=== PATIENT | female | born 1965 | race African-American/Black ===

== ENCOUNTER 2018-02-05 20:05 | Emergency (ER) | payer OTHER ==
[~2018-02-05] VITALS: Ht 152.4 cm; Wt 86.6 kg
[~2018-02-05 20:05] MED LIST: BISOPROLOL FUMAR5 MG PO; NORCO 5-325 TA1 EACH PO; ZANTAC 150MG T150 M1 PO; ZOFRAN ODT4 MG PO
[2018-02-05 21:10] VITALS: BP 134/80
== END 2018-02-05 20:55 | disposition home or self-care (01) ==
LOC: ER 20:05
DX: R20.2 Paresthesia of skin (principal); R25.2 Cramp and spasm; I10 Essential (primary) hypertension; Z88.1 Allergy status to other antibiotic agents

== ENCOUNTER 2019-04-13 06:06 | Emergency (ER) | payer OTHER ==
[~2019-04-13] VITALS: Ht 167.6 cm; Wt 91.6 kg
[2019-04-13 06:46] LABS: ABSOLUTE NEUTROPHILS 3.8 thou/uL (1.4-8.2); BASOPHILS 0.8 % (0.0-2.0); EOSINOPHILS 0.9 % (0.0-3.0); HEMATOCRIT 41.1 % (37.0-47.0); HEMOGLOBIN 13.8 gm/dL (12.0-15.0); LYMPHOCYTES 28.6 % (24.0-44.0); MCH 28.2 pg (26.0-34.0); MCHC 33.5 g/dL (28.0-37.0); MCV 84.2 fL (80.0-100.0); MONOCYTES 7.6 % (1.0-8.0); PLATELET COUNT 309 thou/uL (150-400); POLYS 62.1 % (36.0-66.0); RBC 4.88 mil/uL (4.20-5.00); RDW 14.1 % (10.5-14.5); WBC 6.1 thou/uL (4.0-11.0)
[2019-04-13 06:56] LABS: CALCIUM 9.3 mg/dL (8.5-10.1); CREATININE 0.8 mg/dL (0.6-1.0); POTASSIUM 3.3 mmol/L (3.5-5.1)
[2019-04-13 07:02] LABS: ALBUMIN 3.9 g/dL (3.4-5.0); TOTAL BILIRUBIN 0.7 mg/dL (<0.1-1.0); TOTAL PROTEIN 8.8 g/dL (6.4-8.2)
[2019-04-13 08:06] LABS: URINE BILIRUBIN NEGATIVE (Negative); URINE BLOOD 1+ (Negative); URINE CLARITY CLEAR; URINE COLOR YELLOW; URINE GLUCOSE-RANDOM* NEGATIVE (Negative); URINE KETONES NEGATIVE (Negative); URINE LEUKOCYTES-REFLEX NEGATIVE (Negative); URINE NITRITE-REFLEX NEGATIVE (Negative); URINE PROTEIN (DIPSTICK) 2+ (Negative); URINE SPECIFIC GRAVITY 1.015 (1.005-1.035); URINE UROBILINOGEN 0.2 E.U./dl (0.2-1.0)
[2019-04-13 08:12] LABS: SQUAMOUS None Seen /LPF (0-3); URINE WBC-REFLEX None Seen /HPF (0-5)
[2019-04-13 08:13] LABS: BACTERIA-REFLEX None Seen /HPF (None Seen); CRYSTALS None Seen /LPF (None Seen); URINE RBC 0-2 Rare /HPF (0-2)
[2019-04-13] MEDS ORDERED: NORCO 5-325 TA1 EAC1 PO (09:24)
[2019-04-13] MEDS ORDERED: MIRALAX17 G1 PO ×2 (09:24→16:29)
[2019-04-13 09:52] VITALS: BP 153/97
[2019-04-13] MEDS ORDERED: LORCET 5-325 M1 EACH PO (16:28)
== END 2019-04-13 09:52 | disposition home or self-care (01) ==
LOC: ER 06:06
PROVIDERS: Emergency Medicine
DX: K80.20 Calculus of gallbladder without cholecystitis without obstruction (principal); R11.2 Nausea with vomiting, unspecified; I10 Essential (primary) hypertension; Z98.890 Other specified postprocedural states; Z88.1 Allergy status to other antibiotic agents

== ENCOUNTER 2019-04-16 07:05 | Inpatient (IN) | payer OTHER ==
[~2019-04-16] VITALS: Ht 167.6 cm; Wt 92.1 kg
[~2019-04-16 07:05] MED LIST changes: +LORCET 5-325 M1 EACH PO; +MIRALAX17 G1 PO; +NORCO 5-325 TA1 EAC1 PO
[2019-04-16 08:32] VITALS: BP 129/77
[2019-04-16] MEDS ORDERED: OXYCODONE HCL 55 MG PO (09:52)
[2019-04-16] MEDS ORDERED: IBUPROFEN 200200 M1 PO (09:52)
[2019-04-16] MEDS ORDERED: ACETAMINOPHEN325 M1 PO (09:53)
[2019-04-16] MEDS ORDERED: MIRALAX17 GM PO (09:53)
[2019-04-16] MEDS ORDERED: COLACE 100 MG100 MG PO (09:53)
[2019-04-16 13:15] VITALS: BP 106/72
[2019-04-16 14:58] VITALS: BP 124/96
[2019-04-16 15:45] VITALS: BP 141/78
[2019-04-16 18:58] VITALS: BP 114/71
--- NOTE | 2019-04-16 20:16 | NUR ---
ADMIITED FROM PACU. S/P ALYCE HAMLIN WITH . LAP SITES INTACT. IVF STARTED. PAIN MANAGED PER MD ORDER. STARTED ON CLEAR LIQUIDS. PT WAS SEEN BY GI RETENTION MANAGER AND PHYSICIAN. NO S/S ACUTE DISTRESS NOTED OR REPORTED AT THIS TIME. CARE TRASFERRED TO PM RN AT THIS TIME.
[2019-04-17 03:25] VITALS: BP 101/57
--- NOTE | 2019-04-17 03:54 | NUR ---
ASSUMED PT CARE AT 1900. PT REPORTS PAIN IN THROAT. PAIN IN ABDOMEN IS EXCERBATED WHEN PT COUGHS. COUGHING FREQUENTLY. THROAT SPRAY USED, AND GREEK ICE GIVEN TO HELP SOOTHE. DIFFICULTY SWALLOWING PAIN MEDS SO PT JUST REFUSED THEM. FELL ASLEEP SHORTLY AFTER AND RESTED COMFORTABLY MOST THE NIGHT. LAP SITES INTACT, 1 HAD A SCANT AMOUNT OF BLOOD DRAINAGE, APPLIED BANDAGE AND JUAN CONTINUE TO MONITOR. UP TO BATHROOM, STEADY ON FEET.
[2019-04-17 06:48] LABS: HEMATOCRIT 35.4 % (37.0-47.0); HEMOGLOBIN 11.7 gm/dL (12.0-15.0); MCH 28.2 pg (26.0-34.0); MCV 85.5 fL (80.0-100.0); RBC 4.14 mil/uL (4.20-5.00); RDW 14.3 % (10.5-14.5); WBC 9.3 thou/uL (4.0-11.0)
[2019-04-17 07:06] LABS: CALCIUM 8.8 mg/dL (8.5-10.1); CREATININE 1.1 mg/dL (0.6-1.0); POTASSIUM 3.4 mmol/L (3.5-5.1); TOTAL BILIRUBIN 0.6 mg/dL (<0.1-1.0); TOTAL PROTEIN 7.4 g/dL (6.4-8.2)
[2019-04-17 08:00] VITALS: BP 99/65
[2019-04-17 08:27] VITALS: BP 92/56
--- NOTE | 2019-04-17 10:46 | NUR ---
PT ADMITTED RELATED TO LAP CHOLECYSTECTOMY. CM REVIEWED CHART AND SPOKE WITH CARE TEAM. CM MET WITH PT AT BEDSIDE THIS DAY. PT IS A&O X4. CM ROLE INTRODCUED. PT INDICATED SHE LIVES IN A HOUSE WITH HER SPOUSE AND 2 KIDS. SHE INDICATED THERE IS 1 STEP TO ENTER THE HOUSE THROUGH THE GARAGE AND 2 SETS OF 10 STEPS INSIDE. 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 PT INDICATED NO DME AND NO HH HX. PT INDICATED SHE PLANS TO RETURN HOME ONCE MEDICALLY STABLE. CM TO FOLLOW INDICATED SHOULD ANY DC NEEDS ARISE.
--- NOTE | 2019-04-17 17:06 | PATH ---
[facility] [address] [place] [address] PATHOLOGY RPT PROCEDURE Name: MIAH SON Room #: 441-P [facility] IN M.R.#: [id number] Admission: 04/16/19 Date of : 61 Discharge: Report #: [id number] Path Case #: [id number] L[facility] Accession Number: [id number] . 01 Material submitted: . gallbladder - GALLBLADDER . 01 Clinical history: . Chronic cholecystitis . 02 Diagnosis: Gallbladder, cholecystectomy: - Moderate acute and chronic cholecystitis associated with surface ulceration. - Cholelithiasis. (IUV:shape carver; 04/17/2019) MBR 04/17/2019 1312 Local . 02 Electronically signed: . Selam Allen MD, Pathologist NPI- [id number] . 01 Gross description: . The specimen is received in formalin labeled "Miah Son gallbladder" and consists of a punctured pink-sampson hemorrhagic gallbladder measuring 8.8 x 3.2 x 2.8 cm. The margin is inked black. Opening reveals a lumen filled with yellow orange sludge and fragmented to multifaceted yellow orange calculi measuring 3.5 x 3.0 cm. The mucosa is pink-sampson, eroded, and varying from smooth to roughened with an average wall thickness of 0.2 cm. The gallbladder is entirely encased with yellow adipose tissue measuring up to 0.8 cm. No masses are identified. Welcome Hostess sections are submitted in A1. (SDY; 04/16/2019) SYU/SYU 04/16/2019 1652 Local . 02 Pathologist provided ICD-10: K80.12 . 02 CPT . 170635 Specimen Comment: A courtesy copy of this report has been sent to [phone] Specimen Comment: [id number] Specimen Comment: Report sent to / DR ROSE Performed at: [address] [id number] [place] [address] PATHOLOGY RPT PROCEDURE Name: MIAH SON Room #: 441-P [facility] IN M.R.#: [id number] Admission: 04/16/19 Date of : 61 Discharge: Report #: [id number] Path Case #: [id number] MD Rod Pichardo MD Phone: [phone] Performed at: [address] [id number] MD Selam Allen MD Phone: [phone]
[2019-04-17 18:10] VITALS: BP 131/76
[2019-04-17 19:45] VITALS: BP 133/71
--- NOTE | 2019-04-17 20:40 | NUR ---
Received awake on bed. On nothing per orem- pt informed and aware. On O2 at 2lpm via nasal cannula- as per manager ui nurse pt has been having coarse lung sounds, they recently contacted Dr James to inform him and was able to obtain orders such as: CMP, CBC, Chest xray and to d/c IVF and to maintain O2. Vital signs stable, with slightly low BP but pt's baseline. Assisted in ADLs. Up ad fina. A+Ox4. With Lap sites, surgical glue noted, C/D/I, no signs of infection noted. Complained of pain, due PRN pain meds given as prescribed. For ERCP today, consent signed, a/w schedule. With SL at R hand- intact and flushing well. Pt complained and noted of coughing- Dr Mendoza informed and he ordered scheduled nebulization for pt. Followed up re: schedule of ERCP-pt updated. Pt's requested to talk to a physician- Dr Mendoza informed and pt's number given to him. Report given to GI staff NOELLE. NOELLE called back and said that pt's O2 sats desaturated to 70's upon, GI doctor talked to Dr Mendoza and said that ERCP to be rescheduled. Hospitalist, Pulmo and ID consult placed- US called in consults, physicians has seen the patient. IV antibiotics, KCL tab and Enoxaparin given as prescribed. Lab draws taken as well. Pt on regular diet after coming back from GI lab- tolerated well, no nausea, no vomiting and no abdominal pain noted. Pt seen by Dr Love, one-time furosemide dose 20mg given as prescribed, advised pt to be transferred to CCU- House sup informed, available bed rm 200. Electrolyte protocol ordered as per Dr Love's request. EKG and Troponin done. Pt informed re: transfer and she contacted her relatives. Report given to staff Loyad, pt transported by GEOCHEMISTRY TEACHER with her personal belongings. Upon checking, pt's chart left at central supply aide- asked manager ui GEOCHEMISTRY TEACHER to bring chart to CCU including pharmacy supplied antibiotics.
--- NOTE | 2019-04-18 01:38 | NUR ---
ASSESSMENTS CHARTED, MEDS GIVEN CHARTED. PATIENT RECEIVING IV ANTIBIOTICS, ON 3 LITERS NASAL CANNULA DURING SHIFT. UP AT MONICA TO BATHROOM, RECEIVED LASIX THERAPY TODAY. LAP YAKELIN SITES HAVE STICHES OR SURGICAL GLUE. ERCP WAS POSPONED DUE TO RESPIRATORY ISSUES. PT ON ELECTROLYTE PROTOCOL. C/O PAIN 4/10 DURING SHIFT AT LAP SITES. RECEIVING SCHEDULED TYLENOL.
[2019-04-18 04:45] VITALS: BP 128/74
[2019-04-18 05:40] LABS: HEMATOCRIT 35.7 % (37.0-47.0); HEMOGLOBIN 11.7 gm/dL (12.0-15.0); MCH 28.3 pg (26.0-34.0); MCHC 32.8 g/dL (28.0-37.0); MCV 86.4 fL (80.0-100.0); RBC 4.13 mil/uL (4.20-5.00); RDW 14.5 % (10.5-14.5); WBC 8.1 thou/uL (4.0-11.0)
[2019-04-18 05:54] LABS: ALBUMIN 3.1 g/dL (3.4-5.0); CREATININE 0.8 mg/dL (0.6-1.0); DIRECT BILIRUBIN 0.2 mg/dL (<0.1-0.2); POTASSIUM 3.4 mmol/L (3.5-5.1); TOTAL BILIRUBIN 0.6 mg/dL (<0.1-1.0)
[2019-04-18 07:08] VITALS: BP 122/74
--- NOTE | 2019-04-18 07:48 | HC ---
[facility] [place] [address] [place] [address] CONSULTATION Name: SEEMA SON Room #: 200-I ADM IN M.R.#: [id number] Admission: 04/16/19 Attend Phys: Lino Mendoza MD Discharge: Date of : 61 Report #: [id number] THIS REPORT FOR: //name// CC: Sam Mendoza ATTENDING: Dr. Mendoza. REASON FOR CONSULTATION: Hypoxia and medical management. HISTORY OF PRESENT ILLNESS: The patient is a 53-year-old female who recently underwent cholecystectomy and developed some postoperative hypoxia. Dr. Mendoza called me and asked for a medical consultation to help assist in her postoperative care. She was experiencing abdominal pain, was diagnosed with cholecystitis. She underwent a laparoscopic cholecystectomy yesterday. Cholangiogram postoperatively revealed a possible small ductal calculus in the distal common bile duct and there was concern for choledocholithiasis. The GI service was consulted and they planned ERCP today; however, in the assessment area she was slightly hypoxic and was complaining of a congested cough. The procedure was canceled at this time. An x-ray showed some bilateral alveolar infiltrates. She is denying any respiratory distress, but just feels a productive cough with a deep breath. She has a little bit of pain or discomfort on the right chest wall with a deep breath as well. PAST MEDICAL HISTORY: Hypertension. PAST SURGICAL HISTORY: As above. FAMILY HISTORY: Noncontributory. SOCIAL HISTORY: Denies chronic alcohol or tobacco use. ALLERGIES: AZITHROMYCIN. MEDICATIONS: Advil, oxycodone, Tylenol, Colace, MiraLax, bisoprolol. REVIEW OF SYSTEMS: She denies headache, nausea, vomiting, myalgias, arthralgias, syncope or fall. OBJECTIVE: VITAL SIGNS: Temperature 36.7, pulse 55, respirations 17, blood pressure 99/65, O2 sat 96% on 2 liters. GENERAL: She is awake and alert, in no distress. HEAD AND NECK: Unremarkable. LUNGS: She has some inspiratory crackles in the right base. HEART: Regular, no murmur. ABDOMEN: Obese, soft, normoactive bowel sounds. [facility] [address] [place] [address] CONSULTATION Name: SEEMA SON Room #: 200-I [facility] IN [facility].#: [id number] Admission: 04/16/19 Attend Phys: Lino Mendoza MD Discharge: Date of : 61 Report #: [id number] EXTREMITIES: No cyanosis, clubbing or edema. NEUROLOGIC: Cranial nerves intact. Speech is fluent. Motor strength 5/5 throughout. LABORATORY DATA: White count is 9.3, hemoglobin 11. Creatinine 1.1, potassium 3.4, albumin 3. Chest x-ray reveals diffuse bilateral alveolar infiltrates, worse on the right compared to the left. No pleural effusion. They remarked that the vascularity is within normal limits. ASSESSMENT: 1. Pneumonia. 2. Cholelithiasis, status post laparoscopic cholecystectomy. 3. Hypertension. 4. Mild protein-calorie malnutrition. PLAN: Agree with the antibiotic assessment at this point, I have added some respiratory treatments. We will follow her hospital stay with you. I spoke to Dr. Mendoza regarding her situation. <ELECTRONICALLY SIGNED> By: Giovani Beach MD 04/18/19 0748 1419 1927 Giovani Beach MD /nt
[2019-04-18 11:06] VITALS: BP 133/68
--- NOTE | 2019-04-18 15:14 | NUR ---
ASSUMED CARE AT SHIFT CHANGE, ALERT AND ORIENTED X4. PAIN ONLY WHEN COUGHNIG, AND SCHEDULLED TYLENOL GIVEN. PANCUTRE SITES ARE INTACT. UP WALKING THE HALLWAYS. ABD SOFT, TENDER, AND PASSING GAS. ON RA AND DENIES ANY CP OR SOB. AND WILL CONTINUE WITH POC.
[2019-04-18 15:17] VITALS: BP 122/69
[2019-04-18 19:49] VITALS: BP 149/92
[2019-04-19 04:00] VITALS: BP 131/82
[2019-04-19 04:13] LABS: CREATININE 0.7 mg/dL (0.6-1.0); POTASSIUM 3.2 mmol/L (3.5-5.1)
--- NOTE | 2019-04-19 05:58 | NUR ---
A/O X 4.UP INDEPENDENTLY.VANCO TROUGH 10.DOSE WAS CHANGED.MONITOR SHOWS SR.4 LAP SITES INTACT.POC CONTINUED.
[2019-04-19 08:41] VITALS: BP 148/84
[2019-04-19 12:35] VITALS: BP 145/101
--- NOTE | 2019-04-19 12:55 | EKG ---
[address] [address] ELECTROCARDIOGRAM REPORT Name: SEEMA SON Room #: 200-I ADM IN M.R.#: [id number] Admission: 04/16/19 Attend Phys: Lino Mendoza MD Discharge: Date of : 61 Report #: [id number] THIS REPORT FOR: //name// [facility] Test Date: 2019-04-16 Test Time: 07:58:25 Pat Name: SEEMA SON Department: Room: 200 Gender: F Jewel Diameter Gauger: nisha : 1965 Requested By: Lino Mendoza Order Number: [id number] MD: Niranjan Allen Measurements Intervals [place] Rate: 51 P: 6 WV: 172 QRS: 6 QRSD: 100 T: 61 QT: 447 QTc: 412 Interpretive Statements Sinus rhythm Compared to ECG 03/16/2013 00:31:22 Sinus bradycardia no longer present Electronically Signed On 04-19-2019 12:54:37 INFORMATION SERVICES VICE PRESIDENT by Niranjan Allen [email or web address] <ELECTRONICALLY SIGNED> By: Niranjan Allen MD 04/19/19 1254 0758 0758 Niranjan Allen MD /RONDA
--- NOTE | 2019-04-19 14:38 | 2DMMODE ---
[facility] [address] [place] [address] 2 D/M-MODE ECHOCARDIOGRAM Name: ADELAIDASEEMA Room #: 200-I ADM IN M.R.#: [id number] Admission: 04/16/19 Attend Phys: Lino Mendoza, Discharge: Date of : 61 Report #: [id number] THIS REPORT FOR: //name// APPROVED REPORT Study performed: 04/19/2019 12:56:58 EXAM: Comprehensive 2D, Doppler, and color-flow Echocardiogram Patient Location: Echo lab Room #: 200 Status: routine BSA: 1.99 HR: 70 bpm BP: 148/84 mmHg Rhythm: NSR Other Information Study Quality: Good Indications Congestive Heart Failure Hypertension/HDD 2D Dimensions RVDd: 34.77 mm IVSd: 10.34 (7-11mm) LVOT Diam: 20.93 (18-24mm) LVDd: 49.28 mm PWd: 9.80 (7-11mm) Ascending Ao: 27.99 (22-36mm) LVDs: 31.58 (25-40mm) Aortic Root: 29.18 mm IVC: 14.00 mm Volumes Left Atrial Volume (Systole) Single Plane 4CH: 75.68 mL Single Plane 2CH: 41.69 mL LA ESV Index: 33.00 mL/m2 Aortic Valve AoV Peak Blaise.: 1.93 m/s AO Peak Gr.: 14.97 mmHg LVOT Max P.99 mmHg LVOT Max V: 1.12 m/s RICKI Vmax: 1.99 cm2 Mitral Valve E/A Ratio: 0.7 MV Decel. Time: 252.06 ms [facility] [address] [place] [address] 2 D/M-MODE ECHOCARDIOGRAM Name: SEEMA SON Room #: 200-I [facility]#: [id number] Admission: 04/16/19 Attend Phys: Lino Mendoza, Discharge: Date of : 61 Report #: [id number] MV E Max Blaise.: 0.65 m/s MV A Blaise.: 0.93 m/s MV PHT: 73.10 ms IVRT: 110.73 ms Pulmonary Valve PV Peak Blaise.: 1.12 m/s PV Peak Gr.: 4.99 mmHg Pulmonary Vein P Vein S: 0.62 m/s P Vein A: 0.28 m/s P Vein D: 0.36 m/s P Vein A Dur.: 106.1 msec P Vein S/D Ratio: 1.72 Left Ventricle The left ventricle is normal size. There is normal LV segmental wall motion. There is normal left ventricular wall thickness. Left ventricular systolic function is normal. The left ventricular ejection fraction is within the normal range. LVEF is 60-65%. Grade I - abnormal relaxation pattern. Right Ventricle The right ventricle is normal size. The right ventricular systolic function is normal. Atria The left atrium size is normal. The right atrium size is normal. Aortic Valve The aortic valve is normal in structure. No aortic regurgitation is present. There is no aortic valvular stenosis. Mitral Valve The mitral valve is normal in structure. There is no mitral valve regurgitation noted. No evidence of mitral valve stenosis. Tricuspid Valve The tricuspid valve is normal in structure. There is no tricuspid valve regurgitation noted. Pulmonic Valve The pulmonary valve is normal in structure. There is no pulmonic valvular regurgitation. Great Vessels The aortic root is normal in size. IVC is normal in size and [facility] [address] [place] [address] 2 D/M-MODE ECHOCARDIOGRAM Name: SEEMA SON Room #: 200-I ADM IN .R.#: [id number] Admission: 04/16/19 Attend Phys: Lino Mendoza, Discharge: Date of : 61 Report #: [id number] collapses >50% with inspiration. Pericardium There is no pericardial effusion. <Conclusion> The left ventricle is normal size. LVEF is 60-65%. The aortic valve is normal in structure. The mitral valve is normal in structure. The tricuspid valve is normal in structure. The pulmonary valve is normal in structure. There is no pericardial effusion. <ELECTRONICALLY SIGNED> By: Juvencio Lundberg MD 04/19/19 4065 1438 143 Juvencio Lundberg MD /INF
[2019-04-19 16:12] VITALS: BP 146/93
--- NOTE | 2019-04-19 18:24 | NUR ---
ASSUMED CARE AT SHIFT CHANGE, ALERT AND ORIENTED X4. SR ON THE MONITOR. ASSESMENT DOCUMENTED. ABD SOFT, PATIENT HAD BM TODAY AND WILL CONTINUE WITH POC.
[2019-04-19 20:58] VITALS: BP 150/89
[2019-04-20 00:30] VITALS: BP 157/84
--- NOTE | 2019-04-20 04:30 | NUR ---
PT RESTING QUIETLY IN ROOM THRU THE NOC, PAIN CONTROLLED WITH SCHEDULED TYLENOL, PT UP ADLIB IN ROOM VOIDING IN HAT IN BR FOR STRICT I&O, BP CONTINUES TO CLIMB TO 150'S SYSTOLIC RESTARTED HOME BETABLOCKER, INCISIONS REMAIN CDI, WILL CON'T TO MONITOR PER PPOC.
[2019-04-20 05:03] VITALS: BP 131/63
[2019-04-20 05:42] LABS: ALBUMIN 2.9 g/dL (3.4-5.0); CALCIUM 9.4 mg/dL (8.5-10.1); CREATININE 0.7 mg/dL (0.6-1.0); POTASSIUM 3.5 mmol/L (3.5-5.1); TOTAL BILIRUBIN 0.2 mg/dL (<0.1-1.0); TOTAL PROTEIN 7.1 g/dL (6.4-8.2)
[2019-04-20 08:00] VITALS: BP 187/113
[2019-04-20 11:00] VITALS: BP 142/82
[2019-04-20 12:07] VITALS: BP 187/113
--- NOTE | 2019-04-20 12:37 | NUR ---
PT CARE ASSUMED APPROX 0700. ASSESSMENT CHARTED. PT DENIES PAIN AND SOA. BP ELEVATED THIS AM BUT WNL AT THIS TIME AFTER INTERVENTION. VS OTHERWISE STABLE. PT UP WITH STEADY GAIT AND DENIES QUESTIONS OR CONCERNS REGARDING POST HOSPITAL CARES OR F/U. IV OUT, TELE BOX OFF. PT TO BE ESCORTED OUT TIMELY.
--- NOTE | 2019-04-20 14:54 | EKG ---
[address] [address] ELECTROCARDIOGRAM REPORT Name: SONSEEMA Room #: 200-I [facility] IN M.R.#: [id number] Admission: 04/16/19 Attend Phys: Lino Mendoza MD Discharge: 04/20/19 Date of : 61 Report #: [id number] THIS REPORT FOR: //name// [facility] Test Date: 2019-04-17 Test Time: 15:44:27 Pat Name: SEEMA SON Department: Room: 200 Gender: F Scientist Engineer: Nabor EDWARDS : 1965 Requested By: Pavel Love Order Number: [id number] MD: Niranjan Allen Measurements Intervals [place] Rate: 61 P: 57 WV: 172 QRS: 13 QRSD: 97 T: 59 QT: 414 QTc: 417 Interpretive Statements Sinus rhythm Compared to ECG 03/16/2013 00:31:22 Sinus bradycardia no longer present Electronically Signed On 04-20-2019 14:54:20 PRINTED CIRCUIT BOARDS INSPECTOR by Niranjan Allen [email or web address] <ELECTRONICALLY SIGNED> By: Niranjan Allen MD 04/20/19 1454 1544 1544 Niranjan Allen MD /RONDA
== END 2019-04-20 13:26 | disposition home or self-care (01) | DRG 417 ==
LOC: OR 07:05 → TBA 07:05 → 4S 13:40 → 2N 13:41 → OR 13:41 → 2N 04-17 18:11 → ENTRNSPT 04-20 13:02 → EDTRNSPTSTS 04-20 13:03 → 2N 04-20 13:26
PROVIDERS: Internal Medicine Geriatric Medicine; Internal Medicine Pulmonary Disease; Nurse Practitioner; ADMIT Surgery
PROC: 0FT44ZZ Resection of Gallbladder, Percutaneous Endoscopic Approach (ICD-10-PCS; principal; 2019-04-16)
PROC: BF121ZZ Fluoroscopy of Gallbladder using Low Osmolar Contrast (ICD-10-PCS; principal; 2019-04-16)
DX: K80.10 Calculus of gallbladder with chronic cholecystitis without obstruction (principal); J18.9 Pneumonia, unspecified organism; J96.01 Acute respiratory failure with hypoxia; E44.1 Mild protein-calorie malnutrition; I10 Essential (primary) hypertension; G89.29 Other chronic pain; M54.9 Dorsalgia, unspecified; Z80.0 Family history of malignant neoplasm of digestive organs; Z88.1 Allergy status to other antibiotic agents; Z68.32 Body mass index [BMI] 32.0-32.9, adult; Z79.899 Other long term (current) drug therapy
CPT/HCPCS: 10081; 10195; 50010; 50101; 50249; 50411; 50555; 50558; 51489; 52265; 52266; 53307; 53310; 53312; 54022; 54118; 55245; 56462; 56525; 56526; 56674; 56719; 62110; 62900; 70005

== ENCOUNTER → 2019-04-23 | Outpatient (CLI) | payer OTHER ==
[~2019-04-23] MED LIST changes: +ACETAMINOPHEN325 M1 PO; +COLACE 100 MG100 MG PO; +IBUPROFEN 200200 M1 PO; +MIRALAX17 GM PO; +OXYCODONE HCL 55 MG PO
--- NOTE | 2019-04-24 14:05 | P ---
[facility] [address] PROCEDURE REPORT Name: SEEMA SON Room #: [facility]#: [id number] Admission: 04/23/19 Attend Phys: Lionel Rosales MD Discharge: Date of : 61 Report #: [id number] THIS REPORT FOR: //name// CC: RAQUEL Rosales OUTPATIENT ERCP REPORT BRIEF HISTORY: The patient is a 53-year-old woman who underwent laparoscopic cholecystectomy last week and was found to have evidence of a common bile duct stone. She was discharged several days ago, returns today for ERCP. PREOPERATIVE DIAGNOSIS: Choledocholithiasis. POSTOPERATIVE DIAGNOSIS: Choledocholithiasis. MEDICATIONS: Intubation and general anesthesia. SPECIMEN: None. ESTIMATED BLOOD LOSS: None. PROCEDURE: ERCP with inability to cannulate the common bile duct. FINDINGS: Prior to intubation and general anesthesia, the procedure of ERCP was discussed with the patient as well as potential risks and its complications including incomplete procedure, pancreatitis, bleeding, as well as perforation. She indicates she understands and desires to proceed. DESCRIPTION OF PROCEDURE: After induction of general anesthesia, the patient was placed in the prone position, the Olympus side-viewing endoscope was inserted in cervical esophagus and advanced through the stomach, across the pylorus and duodenum. As we entered the duodenum, the papilla could be seen. It was a very large papilla. It had normal shape, but was quite large and bulging into the lumen. The orifice was seen and clear yellow bile was intermittently flowing from the papilla. No mass lesions or ulcers were seen. The papilla was quite large and oriented in a downward fashion. This was more accentuated than usual. This made visualization of the papilla much more difficult. Attempts were made to go under the papilla and obtain a different angle, but each time we did so, the scope slid further down the duodenum. We were able to cannulate and insert a guidewire. Unfortunately, we cannulated the pancreatic duct. This was confirmed with a small injection of contrast media. We made multiple attempts with 2 different sphincterotomes, including the 0.25 and the 0.21 without success. We could not cannulate the common bile duct. After multiple attempts as well as change in patient position were undertaken, it was felt best to terminate the procedure. The scope was withdrawn. The [address] [address] PROCEDURE REPORT Name: LATOYA SONAIDA Tomlin Room #: REG [facility] [place]#: [id number] Admission: 04/23/19 Attend Phys: Lionel Rosales MD Discharge: Date of : 61 Report #: [id number] patient tolerated the procedure well. CONDITION OF THE PATIENT UPON DISCHARGE: Following procedure, the patient was taken to postanesthesia care unit. INSTRUCTIONS TO THE PATIENT AND FAMILY AT THE TIME OF DISCHARGE: Unfortunately, we were unable to cannulate the common bile duct. She has done well since her cholecystectomy last week. We will have her return to see me in followup in the office in about 2 weeks or sooner, if needed. We will also obtain liver function studies and discuss further with the patient. Options would include MRCP to further evaluate the biliary tree for stones. The meniscus was seen on the operative cholangiogram. Another consideration would be referral to another center for another attempt at ERCP. If she should have pain, she should call immediately. As for today, I would suggest she be n.p.o. for the next hours and then may have clear liquids the remainder of the day and advance diet as tolerated tomorrow. <ELECTRONICALLY SIGNED> By: Lionel Rosales MD 04/24/19 1405 1505 2352 Lionel Rosales MD /nt
== END | disposition home or self-care (01) ==
LOC: GI 10:54
DX: K80.50 Calculus of bile duct without cholangitis or cholecystitis without obstruction (principal); Z90.49 Acquired absence of other specified parts of digestive tract; Z88.8 Allergy status to other drugs, medicaments and biological substances; Z79.899 Other long term (current) drug therapy
CPT/HCPCS: 62110; 62900; 70005